=== PATIENT | male | born 1945 | race Caucasian/White ===

== ENCOUNTER 2024-05-10 23:40 | Inpatient (IN) | payer MEDICARE ==
[2024-05-10] MEDS ORDERED: Morphine 4 MG/ML VIAL ONE (23:49)
[2024-05-10] MEDS ORDERED: Ondansetron PF 4 MG/2 ML Vial ONE (23:49)
[2024-05-10] MEDS ORDERED: Adenosine 6 mg (2 mL) VIAL ONE (23:54)
[2024-05-10] MEDS ORDERED: PHENYLEPHRINE-NS 100 MCG/ML 10 ML SYRINGE ONE (23:55)
[2024-05-10] MEDS ORDERED: Nitroglycerin 50 MG/250 ML BOT 0 ML ONE (23:55)
[2024-05-10] MEDS ORDERED: Heparin 10,000 UNITS/ 10 ML VIAL ONE (23:55)
[2024-05-10] MEDS ORDERED: Atropine Sulfate 1 mg/10 ml Syringe ONE (23:55)
[2024-05-11] MEDS ORDERED: Heparin 25,000 UNITS/D5W 500 ml bag ONE
[2024-05-11 00:07] LABS: #Basophils 0.07 10x3/uL (0.0-0.2); %Basophils 0.8 % (0.0-1.0); %Eosinophils 5.5 % (0.0-10.0); %Lymphocytes 39.1 % (21.0-51.0); %Neutrophils 45.5 % (42.0-75.0); Hematocrit 41.2 % (42.0-52.0); Hemoglobin 13.6 g/dL (14.0-18.0); Mean Corpuscular Hemoglobin 32.7 pg (27.0-31.0); Mean Platelet Volume 9.7 fL (7.4-10.4); Platelet Count 152 10x3/uL (130-400); RBC Distribution Width 13.1 % (11.5-14.5); Red Blood Cell (RBC) Count 4.16 mill/uL (4.70-6.10)
[2024-05-11 00:20] LABS: INR-International Normal Ratio 1.2; Prothrombin Time 14.9 sec (12.0-14.7)
[2024-05-11 00:22] LABS: ALT (SGPT) 19 U/L (8-55); AST (SGOT) 21 U/L (5-34); Albumin 3.4 g/dL (3.4-4.8); Alkaline Phosphatase 56 U/L (40-110); Anion Gap 14 mmol/L (10-20); BUN (Urea Nitrogen) 16 mg/dL (8.4-25.7); Bilirubin, Total 0.7 mg/dL (0.2-1.2); Calc. Creatinine Clearance 0 mL/min (70-130); Calcium 8.4 mg/dL (7.8-10.44); Carbon Dioxide 21 mmol/L (23-31); Chloride 111 mmol/L (98-107); Estimated GFR 61; Globulin 2.4 g/dL (2.4-3.5); Glucose 174 mg/dL (83-110); PTT 116.2 sec (22.9-36.1); Potassium 3.4 mmol/L (3.5-5.1); Protein, Total 5.8 g/dL (5.8-8.1); Sodium 143 mmol/L (136-145)
[2024-05-11 00:26] LABS: Troponin I 0.152 ng/mL (< 0.028)
[2024-05-11] MEDS ORDERED: TICAGRELOR 90 MG TABLET ONE (00:31)
[2024-05-11] MEDS ORDERED: NOREPINEPHRINE 8 MG/250 ML-D5W 0 ML ONE (00:39)
[2024-05-11] MEDS ORDERED: Acetaminophen/Codeine 30-300mg Tablet PO PRN (00:52)
[2024-05-11] MEDS ORDERED: Morphine 2 MG/ML VIAL SLOW IVP PRN (00:52)
[2024-05-11] MEDS ORDERED: Dextrose 5% in Water 1,000 ML IV PRN (00:55)
[2024-05-11] MEDS ORDERED: Dextrose 50% Abboject 50 ML SYRINGE SLOW IVP PRN (00:55)
[2024-05-11] MEDS ORDERED: Glucagon 1 MG/ML KIT IM PRN (00:55)
[2024-05-11] MEDS ORDERED: Insulin Lispro 100 UNIT/ML 10 ML VIAL SC PRN (00:55)
[2024-05-11] MEDS ORDERED: Electrolyte Replacement Protocol FS SCH (01:45)
[2024-05-11 01:50] VITALS: BMI 22.9
[2024-05-11 02:08] LABS: Troponin I 1.749 ng/mL (< 0.028)
[2024-05-11] MEDS: Sodium Chloride 0.9% 500 ML IV SCH (02:30)
[2024-05-11 02:56] LABS: Cardiac Risk 4.6 (Less than 4.5)
[2024-05-11 03:48] LABS: Free T4 (Free Thyroxine) 0.96 ng/dL (0.70-1.48); Thyroid Stimulating Hormone 6.3009 uIU/mL (0.35-4.94)
[2024-05-11] MEDS: Potassium Chloride 20 MEQ in Premix 1 BAG IVPB SCH (06:40)
[2024-05-11 07:10] LABS: #Basophils 0.03 10x3/uL (0.0-0.2); #Eosinphils Less than 0.03 10x3/uL (0.0-0.7); %Basophils 0.3 % (0.0-1.0); %Eosinophils 0.1 % (0.0-10.0); %Lymphocytes 10.2 % (21.0-51.0); %Monocytes 7.2 % (0.0-10.0); %Neutrophils 81.9 % (42.0-75.0); Hematocrit 40.6 % (42.0-52.0); Hemoglobin 13.8 g/dL (14.0-18.0); Mean Corpuscular Hemoglobin 31.9 pg (27.0-31.0); Mean Platelet Volume 9.5 fL (7.4-10.4); Platelet Count 166 10x3/uL (130-400); Red Blood Cell (RBC) Count 4.32 mill/uL (4.70-6.10)
[2024-05-11 07:44] LABS: ALT (SGPT) 58 U/L (8-55); AST (SGOT) 343 U/L (5-34); Albumin 3.1 g/dL (3.4-4.8); Alkaline Phosphatase 56 U/L (40-110); Anion Gap 12 mmol/L (10-20); BUN (Urea Nitrogen) 16 mg/dL (8.4-25.7); Bilirubin, Total 0.9 mg/dL (0.2-1.2); Calc. Creatinine Clearance 64 mL/min (70-130); Calcium 8.2 mg/dL (7.8-10.44); Carbon Dioxide 22 mmol/L (23-31); Chloride 111 mmol/L (98-107); Estimated GFR 73; Globulin 2.1 g/dL (2.4-3.5); Glucose 160 mg/dL (83-110); Protein, Total 5.2 g/dL (5.8-8.1); Sodium 141 mmol/L (136-145)
[2024-05-11 08:26] LABS: Troponin I Greater than 50.000 ng/mL (< 0.028)
[2024-05-11] MEDS: Aspirin Chewable 81 MG TAB PO SCH (09:16)
[2024-05-11] MEDS: TICAGRELOR 90 MG TABLET PO SCH (09:17)
[2024-05-11] MEDS ORDERED: Iopamidol 370 76% 100 ML VIAL ONE (13:13)
[2024-05-11 13:53] LABS: Potassium 4.3 mmol/L (3.5-5.1)
[2024-05-11] MEDS: Atorvastatin Calcium 40 MG TAB PO SCH (19:45)
[2024-05-12 05:01] LABS: ALT (SGPT) 62 U/L (8-55); AST (SGOT) 229 U/L (5-34); Albumin 3.1 g/dL (3.4-4.8); Alkaline Phosphatase 54 U/L (40-110); Anion Gap 13 mmol/L (10-20); BUN (Urea Nitrogen) 20 mg/dL (8.4-25.7); Bilirubin, Total 1.3 mg/dL (0.2-1.2); Calc. Creatinine Clearance 55 mL/min (70-130); Calcium 8.5 mg/dL (7.8-10.44); Carbon Dioxide 21 mmol/L (23-31); Chloride 110 mmol/L (98-107); Estimated GFR 61; Globulin 2.3 g/dL (2.4-3.5); Glucose 186 mg/dL (83-110); Potassium 4.5 mmol/L (3.5-5.1); Protein, Total 5.4 g/dL (5.8-8.1); Sodium 139 mmol/L (136-145)
[2024-05-12 07:02] LABS: #Basophils Less than 0.03 10x3/uL (0.0-0.2); %Basophils 0.2 % (0.0-1.0); %Eosinophils 0.7 % (0.0-10.0); %Lymphocytes 12.4 % (21.0-51.0); %Monocytes 8.7 % (0.0-10.0); %Neutrophils 77.6 % (42.0-75.0); Hematocrit 39.2 % (42.0-52.0); Hemoglobin 13.3 g/dL (14.0-18.0); Mean Corpuscular HGB CONC 33.9 g/dL (32.0-36.0); Mean Corpuscular Hemoglobin 33.1 pg (27.0-31.0); Mean Corpuscular Volume 97.5 fL (78.0-98.0); Mean Platelet Volume 10.5 fL (7.4-10.4); Platelet Count 157 10x3/uL (130-400); RBC Distribution Width 13.5 % (11.5-14.5); Red Blood Cell (RBC) Count 4.02 mill/uL (4.70-6.10)
[2024-05-12] MEDS: Pantoprazole DR 40 MG TAB PO SCH (09:33)
[2024-05-13] MEDS: Sacubitril 24MG/Valsartan 26 MG TAB PO SCH (09:49)
[2024-05-13] MEDS: Dapagliflozin Propanediol 10 MG TAB PO SCH (09:49)
[2024-05-13 12:19] VITALS: TEMP 98.2
[2024-05-13 13:21] VITALS: BP 171/71
[2024-05-13] MEDS: Clopidogrel Bisulfate 300 MG TAB PO SCH (14:58)
[2024-05-14] MEDS ORDERED: FLU (Fluad Triv) TS24-25 (65UP)/MF59C/PF 45 MCG/0.5 ML Syringe IM ONE (02:15)
[2024-05-14] MEDS ORDERED: Clopidogrel Bisulfate 75 MG TAB PO SCH (09:00)
== END 2024-05-13 15:08 | disposition home or self-care (01) | DRG 322 ==
LOC: ERS 23:40 → CCL 05-11 00:08 → CCU 05-11 01:26 → 2SW 05-12 20:34
PROVIDERS: ADMIT Internal Medicine Cardiovascular Disease; ATTEND Internal Medicine Cardiovascular Disease
PROC: 0270346 Dilation of Coronary Artery, One Artery, Bifurcation, with Drug-eluting Intraluminal Device, Percutaneous Approach (ICD-10-PCS; principal; 2024-05-11)
PROC: 4A023N7 Measurement of Cardiac Sampling and Pressure, Left Heart, Percutaneous Approach (ICD-10-PCS; 2024-05-11)
PROC: B2111ZZ Fluoroscopy of Multiple Coronary Arteries using Low Osmolar Contrast (ICD-10-PCS; 2024-05-11)
DX: I21.19 ST elevation (STEMI) myocardial infarction involving other coronary artery of inferior wall (principal); E11.9 Type 2 diabetes mellitus without complications; I10 Essential (primary) hypertension; I25.10 Atherosclerotic heart disease of native coronary artery without angina pectoris; E87.6 Hypokalemia; Z90.49 Acquired absence of other specified parts of digestive tract; I25.5 Ischemic cardiomyopathy
CPT/HCPCS: 36415; 36416; 71045; 80053; 80061; 83880; 84439; 84443; 84481; 84484; 85025; 85347; 85610; 85730; 86850; 86900; 86901; 92941; 93005; 93010; 93306; 93458; 93798; 94760; 96374; 96375; C1769; C1874; C1887; C9606; J0153; J0461; J1644; J2272; J2405; J3480; J7030; Q9967